=== PATIENT | male | born 1985 | race Caucasian/White ===

== ENCOUNTER 2020-02-29 13:03 | Emergency (ER) | payer OTHER ==
--- NOTE | 2020-02-29 13:55 | CR ---
Indication: Cough. Dyspnea. Technique: AP portable view of the chest. Comparison: None Findings: The heart is normal in size. The lungs are clear. No infiltrate, pleural effusion, or pneumothorax is identified. Impression: No acute cardiopulmonary process Dictated by Merna Hendrickson MD @ Feb 29 2020 1:52PM Signed by Dr. Merna Hendrickson @ Feb 29 2020 1:53PM
[2020-02-29 13:57] VITALS: BP 121/65; PULSE 72
--- NOTE | 2020-02-29 14:06 | EDM.PDOC ---
ED HPI GENERAL MEDICAL PROBLEM - General Chief Complaint: Respiratory Problem Stated Complaint: COUGHING CHILLS LOST OF TASTE Time Seen by Provider: 02/29/20 13:54 Source of Information: Reports: Patient History Limitations: Reports: No Limitations - History of Present Illness INITIAL COMMENTS - FREE TEXT/NARRATIVE: 34-year-old male past medical history obesity presents for concern for COVID-19 infection. Patient notes that for the last several days beginning earlier this week he has felt generalized fatigue, nausea, diarrhea, body aches, nonproductive cough. He denies shortness of breath or chest pain. He noted this morning interval development of lost of taste and smell. He notes that he had positive exposure via a coworker. - Related Data Allergies Allergy/AdvReac Type Severity Reaction Status Date / Time No Known Allergies Allergy Verified 02/29/20 13:53 Home Meds: Home Meds . [No Known Home Meds] 02/24/15 [History] Past Medical History - Past Health History Medical/Surgical History: Denies Medical/Surgical History - Infectious Disease History Infectious Disease History: Reports: Chicken Pox Social & Family History - Family History Family Medical History: Noncontributory - Caffeine Use Caffeine Use: Reports: Energy Drinks - Recreational Drug Use Recreational Drug Use: No ED ROS GENERAL - Review of Systems Review Of Systems: Comprehensive ROS is negative, except as noted in HPI. ED EXAM, GENERAL - Physical Exam Exam: See Below Exam Limited By: No Limitations General Appearance: Alert, WD/WN, No Apparent Distress Nose: Normal Inspection Throat/Mouth: Normal Voice, No Airway Compromise Head: Atraumatic, Normocephalic Neck: Normal Inspection Respiratory/Chest: No Respiratory Distress, Lungs Clear, Normal Breath Sounds, No Accessory Muscle Use Cardiovascular: Normal Peripheral Pulses, Regular Rate, Rhythm Extremities: Normal Inspection Neurological: Alert Psychiatric: Normal Affect, Normal Mood Skin Exam: Warm, Dry, Intact, Normal Color Course - Vital Signs Last Recorded V/S: Last Vital Signs Temp 96.9 F 02/29/20 13:54 Pulse 72 02/29/20 13:54 Resp 18 02/29/20 13:54 BP 121/65 02/29/20 13:54 Pulse Ox 96 02/29/20 13:54 - Orders/Labs/Meds Orders: Active Orders 24 hr Category Date Time Status CORONAVIRUS COVID-19 PCR [facility] Stat Lab 02/29/20 14:45 Received Labs: Laboratory Tests 02/29/20 Range/Units 14:59 SARS CoV-2 RNA Rapid TWIN POSITIVE H (NEGATIVE) - Re-Assessments/Exams Free Text/Narrative Re-Assessment/Exam: 02/29/20 14:05 Chest x-ray is unremarkable. No evidence of pneumonia, Covid pneumonia. We will follow up COVID-19 swab and disposition accordingly. 02/29/20 15:39 COVID-19 testing is positive. Had long discussion with patient regarding return precautions, importance of social isolation/quarantine. Patient agrees with and understands plan. Departure - Departure Time of Disposition: 15:39 Disposition: Home, Self-Care 01 Condition: Good Clinical Impression: COVID-19 - Discharge Information Instructions: Prevent the Spread of COVID-19 if You Are Sick - CDC, COVID-19 Frequently Asked Questions, COVID-19 Referrals: PCP,None [Primary Care Provider] - Forms: ED Department Discharge Additional Instructions: Your COVID-19 test was positive, but your chest x-ray does not show signs of pneumonia or Covid pneumonia, and your oxygen saturation remains good throughout your emergency department stay. You can take Tylenol and/or Motrin to control any fever that may develop. This can also help with the body aches. If you are experiencing worsening shortness of breath or chest tightness, we advised that you come back to the emergency department for reassessment. You should isolate for 10 days from symptom onset. If you are still feeling bad after 10 days, you should isolate for an additional 10 days. The vast majority of people are no longer infectious after 20 days of symptoms. The following information is given to patients seen in the emergency department who are being discharged to home. This information is to outline your options for follow-up care. We provide all patients seen in our emergency department with a follow-up referral. The need for follow-up, as well as the timing and circumstances, are variable depending upon the specifics of your emergency department visit. If you don't have a primary care physician on staff, we will provide you with a referral. We always advise you to contact your personal physician following an emergency department visit to inform them of the circumstance of the visit and for follow-up with them and/or the need for any referrals to a consulting specialist. The emergency department will also refer you to a specialist when appropriate. This referral assures that you have the opportunity for follow-up care with a specialist. All of these measure are taken in an effort to provide you with optimal care, which includes your follow-up. Under all circumstances we always encourage you to contact your private physician who remains a resource for coordinating your care. When calling for follow-up care, please make the office aware that this follow-up is from your recent emergency room visit. If for any reason you are refused follow-up, please contact the [facility] Emergency Department at and asked to speak to the emergency department charge nurse. Please follow up with your primary care physician. If you do not have a primary care physician, see below: [facility] [address] [place] [id number] [facility] [address] [place] [address] Sepsis Event Note (ED) - Evaluation Sepsis Screening Result: No Definite Risk - Focused Exam Vital Signs: Vital Signs Temp Pulse Resp BP Pulse Ox 02/29/20 13:54 96.9 F 72 18 121/65 96 - My Orders Last 24 Hours: My Active Orders 02/29/20 14:45 CORONAVIRUS COVID-19 PCR [facility] Stat - Assessment/Plan Last 24 Hours: My Active Orders 02/29/20 14:45 CORONAVIRUS COVID-19 PCR [facility] Stat
== END 2020-02-29 16:18 | disposition home or self-care (01) ==
LOC: MW.ED 13:03
DX: U07.1 COVID-19 (principal)
CPT/HCPCS: 71045; 71045-26; 99283; 99284-25; U0002